=== PATIENT | female | born 1935 | race Caucasian/White ===

== ENCOUNTER 2020-12-04 09:47 | Emergency (ER) | payer MEDICARE, SELFPAY ==
--- NOTE | ~2020-12-04 | CT_ITS ---
EXAMINATION: CT ABDOMEN AND PELVIS WITH CONTRAST CLINICAL INFORMATION: Lower abdominal pain COMPARISON: None TECHNIQUE: Multidetector volumetric images were obtained from the superior aspect of the liver through the pubic symphysis following administration 85 mL of Omnipaque 350 intravenous contrast. Sagittal and coronal reformatted images were obtained on the technologist's workstation. Oral contrast: No This CT examination was performed using dose optimization techniques as appropriate, variously including the following: *Automated exposure control *Adjustment of mA and/or kV according to patient size (this includes techniques or standardized protocols for targeted exams where dose is matched to indication/reason for exam; i.e. extremities or head) *Use of iterative reconstruction technique DLP: 870 mGy-cm FINDINGS: LUNG BASES: There is a small region of groundglass opacity with a 5 mm solid-appearing component on image 39 of 666 in series #4. Heart normal size. Small amount of pericardial fluid. No pleural effusion. Prominent coronary artery calcification present. LIVER, GALLBLADDER, AND BILIARY TREE: The liver is normal in size, shape, and attenuation. No focal hepatic lesion or biliary ductal dilatation is present. The gallbladder is unremarkable with no evidence of radiopaque gallstones, gallbladder wall thickening, or obvious pericholecystic inflammatory changes. PANCREAS: Unremarkable. SPLEEN: Unremarkable. ADRENAL GLANDS: Unremarkable. KIDNEYS AND URETERS: There are numerous bilateral renal cysts present a few of which are complex including the largest one in the lower pole of the left kidney which has septation and calcification and measures approximately 8 x 6 cm in size. No hydronephrosis. Renal calculi are present however they appear to be vascular in nature. Ureters unremarkable. BLADDER: Unremarkable. GASTROINTESTINAL TRACT: No dilated loops of large or small bowel are evident. No free air is identified. No free fluid is seen. No pericolonic inflammatory changes noted. The appendix is not visualized however there are no signs of acute appendicitis. Within the right inguinal region directly adjacent to the urinary bladder without fat plane and some loops of small bowel there is a rim calcified solid lesion with question fatty center and some possible enhancement measuring 2.7 x 1.6 x 1.5 cm in size. This is not in the region of the adnexa, however dermoid/teratoma may exist elsewhere within the body. This could be related to malignancy.. Within the differential diagnosis this could represent endometrioma. Clinical correlation with history of previous surgery in this location for question calcific hematoma or other process recommended. ABDOMINAL WALL: No significant hernia is appreciated. LYMPH NODES: No lymphadenopathy appreciated. VASCULAR: There is prominent aortoiliac calcified plaque present. There is a small bilobed infrarenal abdominal aortic aneurysm centimeters. PELVIC VISCERA: No free fluid. Right OSSEOUS STRUCTURES: There are numerous lytic and sclerotic lesions throughout the visualized bones consistent with metastatic disease. Multiple old healed or healing bilateral rib fractures evident. There is a grade 1 spondylolisthesis L4-L5. There is narrowing of the L5-S1 disc space as well as the lower thoracic spine to T1. CT/CT abdomen pelvis w con IMPRESSION: Diffuse lytic and sclerotic bone lesions consistent with metastatic disease to bone. Clinical correlation with possible breast cancer suggested. Numerous bilateral renal cysts a few of which are complex as described. Right anterior pelvic rim calcified circumscribed mass containing what appears be some fat.
[2020-12-04 10:29] VITALS: BP 113/83; PULSE 81; RESP 16; TEMP 36.5; O2SAT 97
[2020-12-04 11:04] VITALS: BMI 36.6
[2020-12-04 11:25] LABS: Glucose Urine UA NEG (NEG); Leukocyte Esterase Urine 2+ (NEG); Nitrite Urine NEG (NEG); PH 6.5 (5.0-8.0); UACC Culture Trigger YES; Urine Blood TRACE (NEG); Urine Ketones NEG (NEG); Urine Protein NEG (NEG-TRACE)
[2020-12-04 11:28] LABS: Appearance Urine HAZY; Color Urine YELLOW
[2020-12-04 11:37] LABS: Bacteria Urine TRACE /LPF; RBC Urine 0-2 /HPF (0); Squamous Epithelial Cell Urine 1+ /LPF; WBC Urine 0-2 /HPF (0-4)
--- NOTE | 2020-12-04 11:56 | ED_ITS ---
HPI - Female Genitourinary General Chief complaint: Urogenital-Female Stated complaint: Abdominal pain Time Seen by Provider: 12/04/20 11:56 Source: patient Mode of arrival: ambulatory Limitations: no limitations History of Present Illness HPI Narrative: 85-year-old female with past medical history that is significant for breast CA with metastasis being followed by Dr. stephany verduzco who presents ambulatory with her daughter with complaint of pressure-like pain in the lower abdomen with concern for acute colon by the primary care doctor she did have a recent urinary tract infection she is currently taking antibiotics. She otherwise denies any vaginal bleeding or discharge for tissue perfusion. MD elicited complaint: UTI Onset (ago): day(s) Severity: mild Consistency: intermittent Vaginal bleeding: none Urinary symptoms: Dysuria Exacerbating factors: none Relieving factors: none Associated symptoms: denies other symptoms Related Data Home Medications Medication Instructions Recorded Confirmed albuterol sulfate 90 mcg/actuation 2 puff INHALATION Q4H PRN 12/04/20 12/04/20 aerosol inhaler alprazolam 0.5 mg tablet 0.5 mg PO TID PRN 12/04/20 12/04/20 escitalopram oxalate 10 mg tablet 10 mg PO DAILY 12/04/20 12/04/20 hydrocodone 10 mg-acetaminophen 1 tab PO Q6H PRN 12/04/20 12/04/20 300 mg tablet letrozole 2.5 mg tablet 2.5 mg PO DAILY 12/04/20 12/04/20 pyridoxine (vitamin B6) 250 mg 250 mg PO DAILY 12/04/20 12/04/20 tablet sulfamethoxazole 800 1 tab PO BID 12/04/20 12/04/20 mg-trimethoprim 160 mg tablet (Bactrim DS) Allergies Allergy/AdvReac Type Severity Reaction Status Date / Time Penicillins Allergy Anaphylaxis Verified 12/04/20 11:08 Review of Systems Review of Systems: Constitutional: No Weight loss, No Fever, No Chills, No Night Sweats, No Fatigue, No Malaise ENT/Mouth: No Hearing loss, No Ear Pain, No Nasal Congestion, No Sinus Pain, No Hoarseness, No sore throat, No Rhinorrhea, No Swallowing Difficulty Eyes: No Eye Pain, No Swelling, No Redness, No Foreign Body, No Discharge, No Vision Changes Cardiovascular: No Chest Pain, No SOB, No Dyspnea on Exertion, No Orthopnea, No Edema, No Palpitations Respiratory: No Cough, No Sputum, No Wheezing, No Smoke Exposure, No Dyspnea Gastrointestinal: No Nausea, No Vomiting, No Diarrhea, No Constipation, + abdominal Pain, No Hematochezia, No Melena Genitourinary: no irregular bleeding, + Dysuria, No Urinary Frequency, No Hematuria, No Urinary Incontinence, No Urgency, No Flank Pain, No Urinary Flow Changes, No Hesitancy Musculoskeletal: No joint pain, No Myalgias, No Joint Swelling Skin: No Skin Lesions, No rash Neuro: No Weakness, No Numbness, No Paresthesias, No Loss of Consciousness, No Dizziness, No Headache Psych No Social Issues Heme/Lymph: No Bruising, No Bleeding,No Lymphadenopathy Endocrine: No Polyuria, No Polydipsia, No Temperature Intolerance [facility] Past Medical History Medical History (Updated 12/04/20 @ 16:21 by Ravindra Kruger NP) Bladder cancer Bone cancer Breast cancer High cholesterol HTN (hypertension) Social History Social History Alcohol intake: never Smoked in Last 30 Days: No Use of substances other than those prescribed or required for medical reasons: No Advance Directives: No Advance Directives Information Provided: Yes Physical Exam Vital Signs: Vital Signs: Last Vital Signs Temp 97.7 F 12/04/20 10:29 Pulse 65 12/04/20 14:35 Resp 20 12/04/20 14:35 BP 151/62 H 12/04/20 14:35 Pulse Ox 98 12/04/20 14:35 Body Mass Index 36.6 Const: General: cooperative and healthy appearing; No acute distress or intoxicated appearing Nutritional Appearance: average body habitus Orie ntation/consciousness: patient oriented x3 HENMT: Head: Yes normal to inspection Ears: hearing grossly normal bilaterally Eyes: General: appearance normal, both eyes and all related structures Visual [place]: normal visual ov[place]o by confrontation Neck: Neck: Yes normal visual inspection, No positive Brudzinski's sign, No positive Kernig's sign and No tender Thyroid: Thyroid normal Chest: Chest palpation & inspection: normal inspection of the chest Resp: Effort & Inspection: normal respiratory effort Cardio: Jugular venous distension: no JVD GI: Inspection: Yes normal to inspection Palpation (GI): Soft to palpation Percussion: Yes normal to percussion Auscultation: normal bowel sounds : General: Yes no CVA tenderness Back/Spine/Pelvis: Back: no CVA tenderness Skin: General skin exam: no rashes or lesions noted Neuro: General: patient oriented x3 Extrem: General: Yes normal to inspection Course Reevaluation(s) Reevaluation #1: In review 85-year-old female with history of breast CA currently being followed by Oncology presenting with pressure-like lower abdominal pain recent UTI currently on antibiotics plan for labs and CT of the abdomen pelvis with IV contrast rule out metastatic disease. Labs done overall reassuring UA with 2+ leukocyte Estrace - she has been restless here she would like to leave went over to bedside to speak to patient and daughterCT scan has been ordered she is awaiting going to department to have the procedure done. States she would just like to go home and follow up on outpatient basis. After some convincing she is now agreeable to staying for CT scan. Reevaluation #2: After having a CT scan done patient requesting to leave demanded her IV be removed. Advise is pending interpretation by radiologist unable to open the images. Was able to convince her to await results soon as results came back I reviewed these with her she did not want me to consult anybody else and demanded to be di scharged and will follow up with her primary care doctor. MDM - Female Genitourinary Medical Records Attestation: I reviewed the patient's medical records. Lab Data Attestation: I reviewed the patient's lab results. Result diagrams: 12/04/20 13:02 12/04/20 13:02 Labs: Lab Results 12/04/20 12/04/20 12/04/20 Range/Units 11:12 13:02 13:02 WBC 6.1 (4.8-10.8) X10*3/uL RBC 4.08 L (4.20-5.50) X10*6/uL Hgb 12.7 (12.0-16.0) g/dl Hct 39.8 (37-47) % MCV 97.5 (80-98) fL MCH 31.1 (27.0-33.0) pg MCHC 31.9 (31.0-35.0) g/dl RDW 14.6 (11.0-16.0) % Plt Count 179 (160-400) X10*3/uL MPV 9.9 (9.4-12.3) fL Immature Gran % (Auto) 0.2 (0.0-0.4) % Neut % (Auto) 65.7 (45-73) % Lymph % (Auto) 24.1 (20-40) % Castro % (Auto) 7.9 (2-11) % Eos % (Auto) 1.6 (0-4) % Baso % (Auto) 0.5 (0-2) % Lymph # (Auto) 1.5 (1.2-4.9) X10*3/uL Castro # (Auto) 0.5 (0.1-1.2) X10*3/uL Eos # (Auto) 0.1 (0.0-0.4) X10*3/uL Baso # (Auto) 0.0 (0.0-0.2) X10*3/uL Abs Immat Gran (auto) 0.01 (0.00-0.03) X10*3/uL Absolute Neuts (auto) 4.0 (2.0-8.3) X10*3/uL Absolute Nucleated RBC 0.000 (0.0-0.012) X10*3/uL Nucleated RBC % (auto) 0.0 (0.0-0.2) /100WBC PT (9.9-13.0) SEC INR (0.9-1.1) APTT (24.1-38.0) SEC Sodium 141 (135-145) mmol/L Potassium 4.6 (3.3-5.1) mmol/L Chloride 107 (96-108) mmol/L Carbon Dioxide 22 (22-29) mmol/L Anion Gap 17 (12-20) BUN 16 (9-16) mg/dL Creatinine 1.17 (0.5-1.4) mg/dL Estim Creat Clear Calc 37.5 Estimated GFR 44 Random Glucose 94 (60-115) mg/dL Calcium 9.8 (8.4-10.2) mg/dL Total Bilirubin 0.4 (0.0-1.0) mg/dL AST 39 H (5-31) U/L ALT 32 H (0-31) U/L Alkaline Phosphatase 67 (39-117) U/L Total Protein 6.9 (6.5-8.0) g/dL Albumin 4.2 (3.5-5.0) g/dL Urine Color YELLOW Urine Appearance HAZY Urine pH 6.5 (5.0-8.0) Ur Specific Cascade 1.010 (1.005-1.025) Urine Protein NEG (NEG-TRACE) MG/DL Urine Glucose (UA) NEG (NEG) MG/DL Urine Ketones NEG (NEG) MG/DL Urine Blood TRACE (NEG) Urine Nitrite NEG (NEG) Ur Leukocyte Esterase 2+ H (NEG) Urine RBC 0-2 (0) /HPF Urine WBC 0-2 (0-4) /HPF Ur Squamous Epith Cells 1+ /LPF Urine Bacteria TRACE /LPF 12/04/20 Range/Units 13:02 WBC (4.8-10.8) X10*3/uL RBC (4.20-5.50) X10*6/uL Hgb (12.0-16.0) g/dl Hct (37-47) % MCV (80-98) fL MCH (27.0-33.0) pg MCHC (31.0-35.0) g/dl RDW (11.0-16.0) % Plt Count (160-400) X10*3/uL MPV (9.4-12.3) fL Immature Gran % (Auto) (0.0-0.4) % Neut % (Auto) (45-73) % Lymph % (Auto) (20-40) % Castro % (Auto) (2-11) % Eos % (Auto) (0-4) % Baso % (Auto) (0-2) % Lymph # (Auto) (1.2-4.9) X10*3/uL Castro # (Auto) (0.1-1.2) X10*3/uL Eos # (Auto) (0.0-0.4) X10*3/uL Baso # (Auto) (0.0-0.2) X10*3/uL Abs Immat Gran (auto) (0.00-0.03) X10*3/uL Absolute Neuts (auto) (2.0-8.3) X10*3/uL Absolute Nucleated RBC (0.0-0.012) X10*3/uL Nucleated RBC % (auto) (0.0-0.2) /100WBC PT 11.5 (9.9-13.0) SEC INR 1.0 (0.9-1.1) APTT 38.3 H (24.1-38.0) SEC Sodium (135-145) mmol/L Potassium (3.3-5.1) mmol/L Chloride (96-108) mmol/L Carbon Dioxide (22-29) mmol/L Anion Gap (12-20) BUN (9-16) mg/dL Creatinine (0.5-1.4) mg/dL Estim Creat Clear Calc Estimated GFR Random Glucose (60-115) mg/dL Calcium (8.4-10.2) mg/dL Total Bilirubin (0.0-1.0) mg/dL AST (5-31) U/L ALT (0-31) U/L Alkaline Phosphatase (39-117) U/L Total Protein (6.5-8.0) g/dL Albumin (3.5-5.0) g/dL Urine Color Urine Appearance Urine pH (5.0-8.0) Ur Specific Cascade (1.005-1.025) Urine Protein (NEG-TRACE) MG/DL Urine Glucose (UA) (NEG) MG/DL Urine Ketones (NEG) MG/DL Urine Blood (NEG) Urine Nitrite (NEG) Ur Leukocyte Esterase (NEG) Urine RBC (0) /HPF Urine WBC (0-4) /HPF Ur Squamous Epith Cells /LPF Urine Bacteria /LPF Imaging Data Abdominal/pelvis CT with IV contrast: Radiologist's impression: Launch?Image [place] [id number] CT Scan Report Signed Patient: Jessika Licona MR#: [id number] : 1935 Acct:[id number] Age/Sex: 85 / F ADM Date: 12/04/20 Loc: HO.ED Attending Dr: Ordering Physician: Ravindra Kruger [employer] DEVELOPER Date of Service: 12/04/20 Procedure(s): CT abdomen pelvis w con Accession Number(s): [id number] cc: Ravindra Kruger [employer] DEVELOPER~ EXAMINATION: CT ABDOMEN AND PELVIS WITH CONTRAST? CLINICAL INFORMATION: Lower abdominal pain? COMPARISON: None? TECHNIQUE: Multidetector volumetric images were obtained from the superior aspect of the liver through the pubic symphysis following administration 85 mL of Omnipaque 350 intravenous contrast. Sagittal and coronal reformatted images were obtained on the technologist's workstation.? Oral contrast: No This CT examination was performed using dose optimization techniques as appropriate, variously including the following: *Automated exposure control *Adjustment of mA and/or kV according to patient size (this includes techniques or standardized protocols for targeted exams where dose is matched to indication/reason for exam; i.e. extremities or head) *Use of iterative reconstruction technique DLP: 870 mGy-cm FINDINGS: LUNG BASES: There is a small region of groundglass opacity with a 5 mm solid-appearing component on image 39 of 666 in series #4. Heart normal size. Small amount of pericardial fluid. No pleural effusion. Prominent coronary artery calcification present.? LIVER, GALLBLADDER, AND BILIARY TREE: The liver is normal in size, shape, and attenuation. No focal hepatic lesion or biliary ductal dilatation is present. The gallbladder is unremarkable with no evidence of radiopaque gallstones, gallbladder wall thickening, or obvious pericholecystic inflammatory changes.? PANCREAS: Unremarkable.? SPLEEN: Unremarkable.? ADRENAL GLANDS: Unremarkable.? KIDNEYS AND URETERS: There are numerous bilateral renal cysts present a few of which are complex including the largest one in the lower pole of the left kidney which has septation and calcification and measures approximately 8 x 6 cm in size. No hydronephrosis. Renal calculi are present however they appear to be vascular in nature. Ureters unremarkable.? BLADDER: Unremarkable.? GASTROINTESTINAL TRACT: No dilated loops of large or small bowel are evident. No free air is identified. No free fluid is seen. No pericolonic inflammatory changes noted. The appendix is not visualized however there are no signs of acute appendicitis. Within the right inguinal region directly adjacent to the urinary bladder without fat plane and some loops of small bowel there is a rim calcified solid lesion with question fatty center and some possible enhancement measuring 2.7 x 1.6 x 1.5 cm in size. This is not in the region of the adnexa, however dermoid/teratoma may exist elsewhere within the body. This could be related to malignancy.. Within the differential diagnosis this could represent endometrioma. Clinical correlation with history of previous surgery in this location for question calcific hematoma or other process recommended. ABDOMINAL WALL: No significant hernia is appreciated.? LYMPH NODES: No lymphadenopathy appreciated. VASCULAR: There is prominent aortoiliac calcified plaque present. There is a small bilobed infrarenal abdominal aortic aneurysm centimeters. PELVIC VISCERA: No free fluid. Right? OSSEOUS STRUCTURES: There are numerous lytic and sclerotic lesions throughout the visualized bones consistent with metastatic disease. Multiple old healed or healing bilateral rib fractures evident. There is a grade 1 spondylolisthesis L4-L5. There is narrowing of the L5-S1 disc space as well as the lower thoracic spine to T1. CT/CT abdomen pelvis w con IMPRESSION: Diffuse lytic and sclerotic bone lesions consistent with metastatic disease to bone. Clinical correlation with possible breast cancer suggested. ? Numerous bilateral renal cysts a few of which are complex as described. ? Right anterior pelvic rim calcified circumscribed mass containing what appears be some fat.? Dictated By: FINESSE OLIVER MD Signed By: <Electronically signed by FINESSE OLIVER MD in OV> 12/04/20 1601 DD/ 1201 TD/TT:? [employer]ary Service Manager: Discharge Plan Discharge Clinical Impression: Urinary tract infection, Bladder mass Patient Disposition: Home, Self-Care Instructions: Bone Metastasis (ED), Urinary Tract Infection in Older Adults (ED) Additional Instructions: Please complete the course of antibiotic as prescribed by your primary care doctor Please follow-up with your cancer doctor I have given you a copy of your CT scan result you might need to see a urologist Return if any concerns or worsening symptoms otherwise follow-up as planned Thank you Prescriptions: No Action sulfamethoxazole-trimethoprim [Bactrim DS] 800-160 mg Tablet 1 tab PO BID RF: 0 letrozole 2.5 mg Tablet 2.5 mg PO DAILY RF: 0 alprazolam 0.5 mg Tablet 0.5 mg PO TID PRN (Reason: Anxiety) RF: 0 hydrocodone-acetaminophen 10-300 mg Tablet 1 tab PO Q6H PRN (Reason: Pain (Scale Score 4-6)) RF: 0 albuterol sulfate 90 mcg/actuation Hfa Aerosol Inhaler 2 puff INHALATION Q4H PRN (Reason: Respiratory Distress) RF: 0 escitalopram oxalate 10 mg Tablet 10 mg PO DAILY RF: 0 pyridoxine (vitamin B6) 250 mg Tablet 250 mg PO DAILY RF: 0 Referrals: [place] B[place],Mitch S, MD [Primary Care Provider] - 2 days ( CT/CT abdomen pelvis w con IMPRESSION: Diffuse lytic and sclerotic bone lesions consistent with metastatic disease to bone. Clinical correlation with possible breast cancer suggested. Numerous bilateral renal cysts a few of which are complex as described. Right anterior pelvic rim calcified circumscribed mass containing what appears be some fat. ) Interventions: ED Discharge Assessment Last Done: 12/04/20 16:26 Discharge Date/Time: 12/04/20 16:27
[2020-12-04 13:09] LABS: Basophils Percent Auto 0.5 % (0-2); Eosinophils Absolute Auto 0.1 X10*3/uL (0.0-0.4); Eosinophils Percent Auto 1.6 % (0-4); Hematocrit 39.8 % (37-47); Hemoglobin 12.7 g/dl (12.0-16.0); Imm Gran Abs Auto 0.01 X10*3/uL (0.00-0.03); Imm Gran Pct Auto 0.2 % (0.0-0.4); Lymphocytes Absolute Auto 1.5 X10*3/uL (1.2-4.9); Lymphocytes Percent Auto 24.1 % (20-40); MANUAL DIFF FLAG NO; Mean Corpuscular HGB Conc 31.9 g/dl (31.0-35.0); Mean Corpuscular Hemoglobin 31.1 pg (27.0-33.0); Mean Corpuscular Volume 97.5 fL (80-98); Mean Platelet Volume 9.9 fL (9.4-12.3); Monocytes Absolute Auto 0.5 X10*3/uL (0.1-1.2); Monocytes Percent Auto 7.9 % (2-11); Neutrophils Percent Auto 65.7 % (45-73); Platelet Count 179 X10*3/uL (160-400); Red Blood Count 4.08 X10*6/uL (4.20-5.50); Red Cell Distribution Width 14.6 % (11.0-16.0); White Blood Count 6.1 X10*3/uL (4.8-10.8)
[2020-12-04 13:15] LABS: Prothrombin Time 11.5 SEC (9.9-13.0)
[2020-12-04 13:18] LABS: Partial Thromboplastin Time 38.3 SEC (24.1-38.0)
[2020-12-04 13:46] LABS: Alanine Aminotransferase 32 U/L (0-31); Albumin Level 4.2 g/dL (3.5-5.0); Alkaline Phosphatase 67 U/L (39-117); Anion Gap 17 (12-20); Aspartate Amino Transferase 39 U/L (5-31); Bilirubin Total 0.4 mg/dL (0.0-1.0); Blood Urea Nitrogen 16 mg/dL (9-16); Calcium 9.8 mg/dL (8.4-10.2); Carbon Dioxide 22 mmol/L (22-29); Chloride 107 mmol/L (96-108); Creatinine Clr Calc Pharmacy 37.5; Estimated Glomerular Filt Rate 44; Glucose Random 94 mg/dL (60-115); Potassium 4.6 mmol/L (3.3-5.1); Sodium 141 mmol/L (135-145); Total Protein 6.9 g/dL (6.5-8.0)
[2020-12-04 14:35] VITALS: BP 151/62; PULSE 65; RESP 20; O2SAT 98
--- NOTE | 2020-12-04 14:51 | PHA.MEDREC ---
MED REC COMPLETE, NO ISSUES Pharmacy Consult ? Medication Reconciliation Pharmacy has completed the medication reconciliation.
[2020-12-04] MEDS: iohexoL 350 MG/ML 100 ML INFUS..BTL IV (15:07)
--- NOTE | 2020-12-04 16:17 | PC.NURSE ---
pt requesting dc- environmental monitoring specialist to bedside
== END 2020-12-04 16:27 | disposition home or self-care (01) ==
PROVIDERS: Nurse Practitioner Primary Care; Emergency Provider Emergency Medicine; PCP Internal Medicine
DX: N39.0 Urinary tract infection, site not specified (principal); R10.9 Unspecified abdominal pain; N32.9 Bladder disorder, unspecified; R30.0 Dysuria; I10 Essential (primary) hypertension; Z79.899 Other long term (current) drug therapy
CPT/HCPCS: 36415; 74177; 80053; 81001; 85025; 85610; 85730; 87086; 99285; Q9967